=== PATIENT | female | born 1955 | race African-American/Black ===

== ENCOUNTER → 2019-09-26 | Outpatient (CLI) | payer OTHER ==
--- NOTE | 2019-09-26 15:54 | Diagnostic Imaging Report ---
EXAM: US LIVER DATE: 09/26/2019 2:28 PM INDICATION: Elevated osseous COMPARISON: None FINDINGS: The pancreas is not well-visualized secondary to prominent midline bowel gas. The liver is normal in size measuring 16.6 cm in length. Hepatic echogenicity is diffusely increased suggestive of fatty infiltration. No focal hepatic abnormality is identified. The main portal vein is patent with antegrade flow and diameter of 0.7 cm, within normal limits. The gallbladder is surgically absent. There is no intrahepatic biliary ductal dilatation. There is mild dilatation of common bile duct measuring up to 0.9 cm likely secondary to reservoir phenomenon status post cholecystectomy. The right kidney is normal in size measuring 10.7 cm in length with normal cortical thickness/echogenicity. There is no evidence for solid renal mass, hydronephrosis, or shadowing calculi within the right kidney. The aorta and IVC are not well-visualized secondary to prominent midline bowel gas. The visualized portions are grossly unremarkable. There is no ascites visualized within the right upper quadrant. IMPRESSION: Sonographic findings suggestive of hepatic steatosis. Status post cholecystectomy. Suboptimal evaluation of midline structures secondary to prominent bowel gas. Signed by: Dr. Aldo Martinez MD on 09/26/2019 3:51 PM
== END ==
LOC: US 14:11
PROVIDERS: ATTEND Internal Medicine Gastroenterology
DX: R74.8 Abnormal levels of other serum enzymes (principal)
CPT/HCPCS: 76705

== ENCOUNTER → 2019-10-08 | Outpatient (CLI) | payer OTHER ==
[~2019-10-08] MED LIST: AMLODIPINE BESY10 MG PO; BUSPIRONE HCL5 MG PO; DICYCLOMINE HCL20 MG PO; GABAPENTIN300 MG PO; HYDROCHLOROTHIA25 MG PO; LORATADINE10 MG PO; LYRICA150 MG PO; OMEPRAZOLE40 MG PO; QUETIAPINE FUM100 MG PO; SIMVASTATIN20 MG PO; TRAMADOL HCL E100 MG PO; TYLENOL WITH C1 EACH PO
== END ==
LOC: RAD 05:00 → EDSTATUS 10-12 12:00
PROVIDERS: ATTEND Internal Medicine Gastroenterology
DX: Z01.818 Encounter for other preprocedural examination (principal); Z12.11 Encounter for screening for malignant neoplasm of colon; R13.10 Dysphagia, unspecified; Z53.8 Procedure and treatment not carried out for other reasons; Z11.59 Encounter for screening for other viral diseases
CPT/HCPCS: 93005; U0002